=== PATIENT | male | born 1985 | race Caucasian/White ===

== ENCOUNTER 2018-04-08 11:56 | Emergency (ER) | payer BC ==
[~2018-04-08] VITALS: Ht 188 cm; Wt 122.7 kg
[~2018-04-08 11:56] MED LIST: HALOBETASOL PR0.05 % EX; MEDDOSEPAK PO; TRIAMCINOLON0.5 % EX; ZOFRAN4 MG/TAB PO
[2018-04-08] MEDS ORDERED: BLOOD PRESSURE (12:14)
[2018-04-08] MEDS ORDERED: ZITHROMAX250 MG PO (13:09)
[2018-04-08] MEDS ORDERED: PROVENTIL HFA IN (13:09)
[2018-04-08 13:17] VITALS: BP 140/88
== END 2018-04-08 13:24 | disposition home or self-care (01) | DRG 203 ==
LOC: ED 11:56
DX: J40 Bronchitis, not specified as acute or chronic (principal); I10 Essential (primary) hypertension

== ENCOUNTER 2022-03-17 19:11 | Emergency (ER) | payer BC ==
[~2022-03-17] VITALS: Ht 188 cm; Wt 120.4 kg
[~2022-03-17 19:11] MED LIST changes: +BLOOD PRESSURE; +PROVENTIL HFA IN; +ZITHROMAX250 MG PO
[2022-03-17 19:31] VITALS: BP 133/84
[2022-03-17] MEDS ORDERED: ZESTRIL5 M1 PO (19:34)
[2022-03-17 20:01] LABS: URINE BILIRUBIN - DIPSTICK NEGATIVE (NEGATIVE); URINE BLOOD DIPSTICK NEGATIVE (NEGATIVE); URINE COLOR YELLOW; URINE GLUCOSE - DIPSTICK NEGATIVE (NEGATIVE); URINE KETONE NEGATIVE (NEGATIVE); URINE LEUK ESTERASE NEGATIVE (NEGATIVE); URINE PH 5.5 (4.5-8.0); URINE PROTEIN - DIPSTICK NEGATIVE (NEG-TRACE); URINE SPECIFIC GRAVITY 1.025; URINE UROBILINOGEN - DIPSTICK 0.2 E.U./dL (0.2)
[2022-03-17 20:03] LABS: URINE NITRITE - DIPSTICK NEGATIVE (Negative)
[2022-03-17 20:03] LABS: HEMATOCRIT 44.1 % (39.0-50.0); IMMATURE GRANULOCYTES 0.7 % (0.0-5.0); MEAN CELL VOLUME 86.6 fL CALC (80.0-100.0); MEAN CORPUSCULAR HGB 29.5 pG CALC (26.0-32.0); NEUT# 7.67 thou/uL (1.82-7.42); RED BLOOD COUNT 5.09 mill/uL (4.70-6.10)
[2022-03-17 20:24] LABS: ALBUMIN 4.4 g/dL (3.2-5.0); ALKALINE PHOSPHATASE 77 u/l (38-126); AMYLASE 52 u/l (30-110); ANION GAP 13 (6-22 (CALC)); BILIRUBIN, TOTAL 0.6 mg/dL (0.0-1.4); BUN 13 mg/dL (9-20); BUN/CREATININE RATIO 13 (12-20 (CALC)); CARBON DIOXIDE 23 mmol/l (22-30); CHLORIDE 104 mmol/l (95-108); GFR FOR AFR.AMER. > 60 ML/MIN (>=60 (CALC)); GFR OTHER RACES > 60 ML/MIN (>=60 (CALC)); LIPASE 28 u/l (23-300); POTASSIUM 4.3 mmol/l (3.5-5.1); SGOT/AST 35 u/l (17-59); SODIUM 136 mmol/l (137-146); TOTAL PROTEIN 7.3 g/dL (6.3-8.2)
[2022-03-17] MEDS ORDERED: CIPROFLOXACN500 MG PO (21:49)
[2022-03-17] MEDS ORDERED: DICYCLOMINE10 MG PO (21:49)
[2022-03-17 22:06] VITALS: BP 133/84
== END 2022-03-17 22:05 | disposition home or self-care (01) | DRG 392 ==
LOC: ED 19:11
PROVIDERS: Family Medicine
DX: K52.9 Noninfective gastroenteritis and colitis, unspecified (principal)
CPT/HCPCS: Q9967